=== PATIENT | female | born 1995 | race Caucasian/White ===

== ENCOUNTER 2017-10-22 13:28 | Emergency (ER) | payer SELFPAY ==
[2017-10-22] MEDS ORDERED: ACETAMINOPHEN 325 MG TABLET PO ONE (14:06)
--- NOTE | 2017-10-22 14:09 | ER Document Report ---
ED Medical Screen (RME) - General Chief Complaint: Vaginal Bleeding Stated Complaint: ABDOMINAL PAIN Time Seen by Provider: 10/22/17 14:01 Notes: 22-year-old female here with complaints of heavy vaginal bleeding and lower abdominal pain that started yesterday. She states that the bleeding started out light and has progressively worsened. She has had some blood clots that she describes as "baseball size". There was some tissue in the blood clots that concerned the patient for a possible that she did not know about. She has been lightheaded with standing and has a history of anemia. EXAM Mild to moderate suprapubic tenderness to palpation TRAVEL OUTSIDE OF THE [place] IN LAST 30 DAYS: No - Related Data Allergies/Adverse Reactions: No Known Allergies Allergy (Verified 10/22/17 13:30) Past Medical History Pulmonary Medical History: Reports: Hx Asthma - Immunizations Immunizations up to date: Yes Hx Diphtheria, Pertussis, Tetanus Vaccination: No Physical Exam - Vital signs Vitals: Temp Pulse Resp BP Pulse Ox 98.7 F 84 16 122/69 99 10/22/17 13:53 10/22/17 13:53 10/22/17 13:53 10/22/17 13:53 10/22/17 13:53 Course - Vital Signs Vital signs: Temp Pulse Resp BP Pulse Ox 98.7 F 84 16 122/69 99 10/22/17 13:53 10/22/17 13:53 10/22/17 13:53 10/22/17 13:53 10/22/17 13:53
[2017-10-22 14:49] LABS: ABSOLUTE BASOPHILS # (AUTO) 0.1 10^3/uL (0.0-0.2); ABSOLUTE EOSINOPHILS # (AUTO) 0.4 10^3/uL (0.0-0.6); ABSOLUTE LYMPHOCYTES (AUTO) 3.4 10^3/uL (0.5-4.7); ABSOLUTE MONOCYTES (AUTO) 0.5 10^3/uL (0.1-1.4); BASOPHILS % (AUTO) 0.6 % (0-2); EOSINOPHILS % (AUTO) 4.1 % (0-6); HEMOGLOBIN 11.3 g/dL (12.0-15.5); HGB HCT DIFFERENCE -1.1; LYMPHOCYTES % (AUTO) 36.4 % (13-45); MEAN CORPUSCULAR HEMOGLOBIN 24.8 pg (27.0-33.4); MEAN CORPUSCULAR HGB CONC 32.4 g/dL (32.0-36.0); MEAN CORPUSCULAR VOLUME 77 fl (80-97); MONOCYTES % (AUTO) 5.6 % (3-13); RED BLOOD COUNT 4.58 10^6/uL (3.72-5.28); RED CELL DISTRIBUTION WIDTH 17.2 % (11.5-14.0); SEGMENTED NEUTROPHILS % (AUTO) 53.3 % (42-78); WHITE BLOOD COUNT 9.4 10^3/uL (4.0-10.5)
[2017-10-22 15:01] LABS: APPEARANCE,URINE CLEAR; BILIRUBIN,URINE NEGATIVE (NEGATIVE); GLUCOSE, URINE NEGATIVE (NEGATIVE); KETONES,URINE TRACE mg/dL (NEGATIVE); LEUKOCYTE ESTERASE,URINE TRACE (NEGATIVE); NITRITE,URINE NEGATIVE (NEGATIVE); PROTEIN,URINE NEGATIVE (NEGATIVE); URINE SPECIFIC GRAVITY 1.006; UROBILINOGEN,URINE NEGATIVE mg/dL (<2.0)
[2017-10-22] MEDS ORDERED: IBUPROFEN 600 MG TABLET PO ONE (15:04)
[2017-10-22 15:12] LABS: ANION GAP 16 (5-19); BLOOD UREA NITROGEN 6 mg/dL (7-20); CALCIUM 9.8 mg/dL (8.4-10.2); CARBON DIOXIDE 22 mmol/L (22-30); CHLORIDE 103 mmol/L (98-107); CREATININE RESULT 0.52 mg/dL (0.52-1.25); GLUCOSE 83 mg/dL (75-110); POTASSIUM 3.6 mmol/L (3.6-5.0); SODIUM 140.7 mmol/L (137-145)
--- NOTE | 2017-10-22 15:30 | RADIOLOGY REPORT (SQ) ---
EXAM DESCRIPTION: U/S OB TRANSVAGINAL W/O DOP COMPLETED DATE/TIME: 10/22/2017 3:10 pm REASON FOR STUDY: blood clots and lower abd pain; eval for RPOC COMPARISON: None. TECHNIQUE: Transvaginal static and realtime grayscale images acquired of the pelvis. Additional vida cted spectral and color Doppler images recorded. All images stored on PACs. CG: Not available. LIMITATIONS: None. FINDINGS: Sonographic imaging shows a heterogeneous mass within the endometrial canal measuring 3.6 x 2.7 x 2.5 cm. No identifiable parts are seen. There is no heart motion. There is no fluid. The ovaries cannot be seen because of bowel gas. IMPRESSION: There is a heterogeneous mass within the endometrial canal that may relate to products o f conception, but no identifiable parts can be seen. The appearance is not suggestive of molar . TECHNICAL DOCUMENTATION: JOB ID: [id number] [employer]- All Rights Reserved
--- NOTE | 2017-10-22 16:44 | ER Document Report ---
ED GI/ - General Chief Complaint: Vaginal Bleeding Stated Complaint: ABDOMINAL PAIN Time Seen by Provider: 10/22/17 14:01 Notes: Patient is complaining of vaginal bleeding and passing clots and severe suprapubic abdominal pain that began yesterday afternoon around 2 PM. The bleeding and clots have worsened. Patient's last menstrual cycle was early August so she has missed 1 cycle. On no control. Denies any fevers. TRAVEL OUTSIDE OF THE [place] IN LAST 30 DAYS: No - Related Data Allergies/Adverse Reactions: No Known Allergies Allergy (Verified 10/22/17 13:30) Past Medical History - General Last Menstrual Period: 08/15/17 - Social History Smoking Status: Current Every Day Smoker Frequency of alcohol use: None Drug Abuse: None Family History: Reviewed & Not Pertinent Patient has suicidal ideation: No Patient has homicidal ideation: No Pulmonary Medical History: Reports: Hx Asthma Past Surgical History: Reports: Hx Section - Immunizations Immunizations up to date: Yes Hx Diphtheria, Pertussis, Tetanus Vaccination: No Review of Systems - Review of Systems Notes: REVIEW OF SYSTEMS: CONSTITUTIONAL : Denies fever. EENT: Denies eye, ear, nose or mouth or throat pain or other symptoms. CARDIOVASCULAR: Denies chest pain. RESPIRATORY: Denies cough, chest congestion, or shortness of breath. GASTROINTESTINAL: See HPI. GENITOURINARY: Denies difficulty or painful urinating, urinary frequency, blood in urine. See HPI. MUSCULOSKELETAL: Denies back or neck pain. Denies joint pain or swelling. SKIN: Denies rash or skin lesions. NEUROLOGICAL: Denies LOC or altered mental status. Denies headache. Denies sensory loss or motor deficits. ALL OTHER SYSTEMS REVIEWED AND NEGATIVE. Physical Exam - Vital signs Vitals: Temp Pulse Resp BP Pulse Ox 98.7 F 84 16 122/69 99 10/22/17 13:53 10/22/17 13:53 10/22/17 13:53 10/22/17 13:53 10/22/17 13:53 Interpretation: Normal - Notes Notes: PHYSICAL EXAMINATION: GENERAL: Well-appearing, in no acute distress, but does appear to be in pain. Vital signs are normal. Afebrile. HEAD: Atraumatic, normocephalic. NECK: Normal range of motion, supple. LUNGS: Breath sounds clear and equal bilaterally. HEART: Regular rate and rhythm without murmurs. ABDOMEN: Soft, tender suprapubic region but no no guarding or rebound. BACK: No tenderness throughout entire back. EXTREMITIES: Normal range of motion without pain. NEUROLOGICAL: Normal speech, normal gait. Normal sensory, motor, and reflex exams. Awake, alert, and oriented x3. Cranial nerves normal. SKIN: Warm, dry, no rashes. - Genitourinary External exam: Normal, Other - Dry blood present at the introitus Speculum exam: Cervix closed, Other - Small amount of blood in the vaginal vault.. No: Products of conception Vaginal bleeding: Mild Bimanuel exam: Uterus enlarged - Very slightly, Other - Uterus is tender to compress bimanually. Course - Re-evaluation Re-evalutation: 10/22/17 20:[address] Pham who recommended giving the patient Vasotec 800 mg PV and follow-up in the office. - Vital Signs Vital signs: Temp Pulse Resp BP Pulse Ox 98.7 F 72 16 117/72 100 10/22/17 13:53 10/22/17 16:50 10/22/17 16:50 10/22/17 16:50 10/22/17 16:50 - Laboratory Result Diagrams: 10/22/17 14:28 10/22/17 14:28 Laboratory results interpreted by me: 10/22/17 10/22/17 10/22/17 14:28 14:28 14:28 Hgb 11.3 L Hct 35.0 L MCV 77 L MCH 24.8 L RDW 17.2 H BUN 6 L Beta HCG, Quant Urine Ketones TRACE H Urine Blood LARGE H Ur Leukocyte Esterase TRACE H Urine HCG, Qual POSITIVE H 10/22/17 14:28 Hgb Hct MCV MCH RDW BUN Beta HCG, Quant 7854.20 H Urine Ketones Urine Blood Ur Leukocyte Esterase Urine HCG, Qual - Diagnostic Test Radiology reviewed: Image reviewed, Reports reviewed - Ultrasound shows a mass in the endometrial canal which is likely products of conception and miscarriage. On the patient's pelvic exam, there was no tissue that I could remove with the ring forceps. The cervix was closed. Discharge - Discharge Clinical Impression: Incomplete miscarriage Condition: Stable Disposition: HOME, SELF-CARE Additional Instructions: Miscarriage Impending You have been evaluated for a possible miscarriage. At this time, it appears that the fetus has stopped growing. A miscarriage occurs when the fetus is abnormal. There is no medicine or treatment to prevent it. If bleeding is not severe, and if your pain can be controlled with medicine, you could complete the miscarriage at home. If that's not practical, or if the miscarriage doesn't progress spontaneously, we will arrange for a D&C procedure. You should rest in bed. Do not douche or have sex for at least a week, or until OK'd by the doctor. If you believe you've passed the fetus, collect it in a zip-lock plastic bag. Be sure to follow up with your doctor. Call the doctor or return for re- examination if there is an increase in bleeding or cramping, extreme weakness, fainting, fever, or passage of tissue. Ibuprofen Ibuprofen is an excellent, safe drug for pain control. In addition, it has potent antiinflammatory effects which are beneficial, especially in the treatment of injuries, arthritis, or tendonitis. It's best to take ibuprofen with food. Persons with ulcer disease or allergy to aspirin should notify their physician of this before taking ibuprofen. Take the medication exactly as prescribed. Don't take additional doses unless instructed to do so by your doctor. If you develop wheezing, shortness of breath, hives, faintness, stomach pain, vomiting, or dark black stools, return for re-evaluation at once. Oral Narcotic Medication You have been given a prescription for pain control. This medication is a narcotic. It's best taken with food, as nausea can result if taken on an empty stomach. Don't operate machinery or drive within six hours of taking this medication. Do not combine this medicine with alcohol, or with any medication which can cause sedation (such as cold tablets or sleeping pills) unless you get permission from the physician. Narcotics tend to cause constipation. If possible, drink plenty of fluids and eat a diet high in fiber and fruits. You have been given a prescription for Cytotec which is prescribed to help the contractions and expelling the miscarriage tissue and blood. The four tablets should be inserted in the vagina all at one time. They may cause uterine cramping. FOLLOW-UP CARE: If you have been referred to a physician for follow-up care, call the physician s office for an appointment as you were instructed or within the next two days. If you experience worsening or a significant change in your symptoms (very heavy bleeding with large clots of blood, passage of tissue, more severe abdominal / pelvic pain or cramping, feeling faint or severe weakness, fever, etc.), notify the physician immediately or return to the Emergency Department at any time for re-evaluation. OBSTETRIC-GYNECOLOGIC ([facility]) [facility] IN [place]: [facility] [address] [place] [address] [phone] We recommend you follow-up with the local [facility] in a week to have repeat lab work done. Prescriptions: Misoprostol [Cytotec 0.2 mg Tablet] 0.8 mg PV ONCE PRN #4 tablet PRN Reason: Oxycodone HCl/Acetaminophen [Percocet 5-325 mg Tablet] 1 - 2 tab PO Q4H PRN #10 tablet PRN Reason: Forms: Return to Work
[2017-10-22 17:05] VITALS: BP 117/72
== END 2017-10-22 16:50 | disposition home or self-care (01) ==
LOC: ER 13:28
DX: O03.4 Incomplete spontaneous abortion without complication (principal); J45.909 Unspecified asthma, uncomplicated; R10.30 Lower abdominal pain, unspecified; F17.200 Nicotine dependence, unspecified, uncomplicated
CPT/HCPCS: 36415; 76817; 80048; 81001; 81025; 84702; 85025; 86900; 86901; 99284

== ENCOUNTER 2019-11-23 19:30 | Observation (INO) | payer SELFPAY ==
[2019-11-23] MEDS ORDERED: KETOROLAC TROMETHAMINE INJ/PF 30 MG/1 ML SDV IV ONE ×2 (20:39→23:30)
[2019-11-23] MEDS ORDERED: NORMAL SALINE 1000 ML 1,000 ML IV ONE (20:39)
[2019-11-23] MEDS ORDERED: ONDANSETRON HCL INJ/PF 4 MG/2 ML SDV IV ONE ×2 (20:39→23:30)
--- NOTE | 2019-11-23 20:41 | ER Document Report ---
ED Medical Screen (RME) - General Chief Complaint: Abdominal Pain Stated Complaint: ABDOMINAL PAIN Time Seen by Provider: 11/23/19 20:33 TRAVEL OUTSIDE OF THE [place] IN LAST 30 DAYS: No - HPI Notes: 11/23/19 20:39 24-year-old female presents emergency room with sudden onset right upper quadrant abdominal pain that started this morning, worse after eating a fatty meal. Denies any fevers or chills. Denies any nausea vomiting or diarrhea. Patient suspects this is her gallbladder. Pain is 7 out of 10, constant after she ate pizza at 5 PM. Denies any prior history of abdominal surgeries. I have greeted and performed a rapid initial assessment of this patient. A comprehensive ED assessment and evaluation of the patient, analysis of test results and completion of the medical decision making process will be conducted by additional ED providers. PHYSICAL EXAMINATION: GENERAL: Well-appearing, well-nourished and in no acute distress. HEAD: Atraumatic, normocephalic. CV: s1, s2 regular LUNGS: No respiratory distress abd: RUQ abd pain Musculoskeletal: Normal range of motion NEUROLOGICAL: Normal speech, normal gait. SKIN: Warm, Dry, normal turgor, no rashes or lesions noted. - Related Data Allergies/Adverse Reactions: No Known Allergies Allergy (Verified 10/22/17 13:30) Past Medical History - Social History Frequency of alcohol use: None Drug Abuse: None Pulmonary Medical History: Reports: Hx Asthma Renal/ Medical History: Reports: Hx Peritoneal Dialysis Past Surgical History: Reports: Hx Section - Immunizations Immunizations up to date: Yes Hx Diphtheria, Pertussis, Tetanus Vaccination: No Physical Exam - Vital signs Vitals: Temp Pulse Resp BP Pulse Ox 98.4 F 80 18 117/70 100 11/23/19 19:44 11/23/19 19:44 11/23/19 19:44 11/23/19 19:44 11/23/19 19:44 Course - Vital Signs Vital signs: Temp Pulse Resp BP Pulse Ox 98.4 F 80 18 117/70 100 11/23/19 19:44 11/23/19 19:44 11/23/19 19:44 11/23/19 19:44 11/23/19 19:44
[2019-11-23 21:56] LABS: ABSOLUTE BASOPHILS # (AUTO) 0.1 10^3/uL (0.0-0.2); ABSOLUTE EOSINOPHILS # (AUTO) 0.4 10^3/uL (0.0-0.6); ABSOLUTE LYMPHOCYTES (AUTO) 4.1 10^3/uL (0.5-4.7); ABSOLUTE MONOCYTES (AUTO) 0.7 10^3/uL (0.1-1.4); ABSOLUTE NEUT (AUTO) 3.8 10^3/uL (1.7-8.2); EOSINOPHILS % (AUTO) 4.1 % (0-6); HEMATOCRIT 36.9 % (36.0-47.0); HEMOGLOBIN 11.5 g/dL (12.0-15.5); LYMPHOCYTES % (AUTO) 45.4 % (13-45); MEAN CORPUSCULAR HEMOGLOBIN 22.3 pg (27.0-33.4); MEAN CORPUSCULAR HGB CONC 31.2 g/dL (32.0-36.0); MEAN CORPUSCULAR VOLUME 71 fl (80-97); MONOCYTES % (AUTO) 7.6 % (3-13); PLATELET COUNT 282 10^3/uL (150-450); RED BLOOD COUNT 5.17 10^6/uL (3.72-5.28); RED CELL DISTRIBUTION WIDTH 17.3 % (11.5-14.0); SEGMENTED NEUTROPHILS % (AUTO) 41.9 % (42-78); TOTAL CELLS COUNTED % (AUTO) 100 %; WHITE BLOOD COUNT 9.1 10^3/uL (4.0-10.5)
[2019-11-23 21:57] LABS: APPEARANCE,URINE SLIGHTLY-CLOUDY; BILIRUBIN,URINE NEGATIVE (NEGATIVE); COLOR,URINE YELLOW; GLUCOSE, URINE NEGATIVE (NEGATIVE); KETONES,URINE TRACE mg/dL (NEGATIVE); LEUKOCYTE ESTERASE,URINE MODERATE (NEGATIVE); NITRITE,URINE POSITIVE (NEGATIVE); PROTEIN,URINE 30 mg/dL (NEGATIVE); URINE SPECIFIC GRAVITY 1.027
[2019-11-23 22:09] LABS: ALBUMIN 5.2 g/dL (3.5-5.0); ALKALINE PHOSPHATASE 64 U/L (38-126); ANION GAP 14 (5-19); ASPARTATE AMINO TRANSFERASE 24 U/L (14-36); BILIRUBIN,DIRECT 0.1 mg/dL (0.0-0.4); BILIRUBIN,TOTAL 1.2 mg/dL (0.2-1.3); BLOOD UREA NITROGEN 19 mg/dL (7-20); CALCIUM 10.4 mg/dL (8.4-10.2); CARBON DIOXIDE 26 mmol/L (22-30); CHLORIDE 101 mmol/L (98-107); GLUCOSE 91 mg/dL (75-110); POTASSIUM 4.7 mmol/L (3.6-5.0); TOTAL PROTEIN 8.8 g/dL (6.3-8.2)
--- NOTE | 2019-11-23 22:17 | RADIOLOGY REPORT (SQ) ---
US ABDOMEN LIMITED HISTORY: RUQ abdominal pain COMPARISON: none TECHNIQUE: Real-time sonographic images of the right upper quadrant of the abdomen were obtained including color flow analysis. FINDINGS: The liver is normal in appearance and measures 14.3 cm in length. Imaged hepatic and portal veins are patent with normal directional flow. No intrahepatic or extrahepatic biliary ductal dilatation. 2.0-mm common hepatic duct. The gallbladder is contracted but noted to contain sludge and multiple echogenic foci that produce acoustic shadowing with the largest measuring 1.4 cm in size. The gallbladder wall is thickened up to 4 mm. No pericholecystic fluid. Positive sonographic Jama's sign. Visualized portions of the pancreas are unremarkable. The right kidney is unremarkable measuring 10.6 cm in length. No shadowing calculi or right-sided hydronephrosis. No free fluid in Morison's pouch. IMPRESSION: Cholelithiasis and probable cholecystitis. No biliary obstruction.
[2019-11-24] MEDS ORDERED: AMPICILLIN SOD/SULBACTAM 3 GM VIAL IV ONE (01:03)
[2019-11-24] MEDS ORDERED: MORPHINE SULFATE 10 MG/ML INJ IV ONE (01:04)
--- NOTE | 2019-11-24 01:05 | ER Document Report ---
ED GI/ - General Chief Complaint: Abdominal Pain Stated Complaint: ABDOMINAL PAIN Time Seen by Provider: 11/23/19 20:33 Notes: Patient is a 24-year-old female that comes to the emergency department for chief complaint of right upper quadrant pain. She states that she started hurting last night, pain continued today with nausea, she did not eat anything all day, she states she tried to eat a slice of pizza tonight and had severe pain causing her to come to the emergency department. She was treated with Toradol and does feel improved but the pain has not resolved. She denies vomiting, fever, lower abdominal pain, dysuria. She has had a but no other surgeries, she denies smoking, drinks occasional alcohol, denies any recreational drugs. She denies any daily medications. TRAVEL OUTSIDE OF THE [place] IN LAST 30 DAYS: No - Related Data Allergies/Adverse Reactions: No Known Allergies Allergy (Verified 10/22/17 13:30) Past Medical History - General Information source: Patient - Social History Smoking Status: Current Every Day Smoker Frequency of alcohol use: None Drug Abuse: None Lives with: Family Family History: Reviewed & Not Pertinent Patient has suicidal ideation: No Patient has homicidal ideation: No Pulmonary Medical History: Reports: Hx Asthma Renal/ Medical History: Reports: Hx Peritoneal Dialysis Past Surgical History: Reports: Hx Section - Immunizations Immunizations up to date: Yes Hx Diphtheria, Pertussis, Tetanus Vaccination: No Review of Systems - Review of Systems Constitutional: No symptoms reported EENT: No symptoms reported Cardiovascular: No symptoms reported Respiratory: No symptoms reported Gastrointestinal: See HPI Genitourinary: No symptoms reported Female Genitourinary: No symptoms reported Musculoskeletal: No symptoms reported Skin: No symptoms reported Hematologic/Lymphatic: No symptoms reported Neurological/Psychological: No symptoms reported Physical Exam - Vital signs Vitals: Temp Pulse Resp BP Pulse Ox 98.4 F 80 18 117/70 100 11/23/19 19:44 11/23/19 19:44 11/23/19 19:44 11/23/19 19:44 11/23/19 19:44 - Notes Notes: GENERAL: Alert, interacts well. HEAD: Normocephalic, atraumatic. EYES: Pupils equal, round, and reactive to light. Extraocular movements intact. ENT: Oral mucosa moist, tongue midline. Oropharynx unremarkable. Airway patent. LUNGS: Clear to auscultation bilaterally, no wheezes, rales, or rhonchi. No respiratory distress. HEART: Regular rate and rhythm. No murmur ABDOMEN: Epigastric and right upper quadrant tenderness on exam, mid to lower abdomen is complete benign. No rigidity or guarding. Bowel sounds present. GENITOURINARY: Deferred EXTREMITIES: Moves all 4 extremities spontaneously. No edema, normal radial and dorsalis pedis pulses bilaterally. No cyanosis. BACK: no cervical, thoracic, lumbar midline tenderness. No saddle anesthesia, normal distal neurovascular exam. Moves all extremities in full range of motion. NEUROLOGICAL: Alert and oriented x3. Normal speech. Cranial nerves II through XII grossly intact. PSYCH: Normal affect, normal mood. SKIN: Warm, dry, normal turgor. No rashes or lesions noted. Course - Re-evaluation Re-evalutation: Patient still has right upper quadrant tenderness despite medications, her symptoms are very consistent with gallbladder pathology, CBC, chemistry, lipase reassuring, however right upper quadrant ultrasound is showing cholelithiasis and possible cholecystitis. There is gallbladder wall thickening and positive Jama sign. Because of the concern for cholecystitis patient will be kept n.p.o. and I will discuss with the surgeon. I discussed this with patient at length and she states full agreement with this plan. Discussed with Dr. Apodaca, he evaluated the patient at bedside, he is admitting the patient for surgery in the morning, patient admitted to the surgical service. - Vital Signs Vital signs: Temp Pulse Resp BP Pulse Ox 97.6 F 63 18 107/70 99 11/24/19 04:00 11/24/19 04:00 11/24/19 04:00 11/24/19 04:00 11/24/19 04:00 - Laboratory Result Diagrams: 11/23/19 21:19 11/23/19 21:19 Laboratory results interpreted by me: 11/23/19 11/23/19 11/23/19 21:19 21:19 21:19 Hgb 11.5 L MCV 71 L MCH 22.3 L MCHC 31.2 L RDW 17.3 H Lymph % (Auto) 45.4 H Seg Neutrophils % 41.9 L Calcium 10.4 H Total Protein 8.8 H Albumin 5.2 H Urine Protein 30 H Urine Ketones TRACE H Urine Nitrite POSITIVE H Urine Urobilinogen 2.0 H Ur Leukocyte Esterase MODERATE H Discharge - Discharge Clinical Impression: Right upper quadrant pain Cholelithiasis Qualifiers: Cholelithiasis location: gallbladder Cholecystitis presence: with cholecystitis Cholecystitis acuity: acute Biliary obstruction: without biliary obstruction Qualified Code(s): K80.00 - Calculus of gallbladder with acute cholecystitis without obstruction Condition: Stable Disposition: ADMITTED OBSERVATION Admitting Provider: Surgicalist Unit Admitted: Surgical Floor
[2019-11-24] MEDS ORDERED: NICOTINE 7 MG/24 HR PATCH.TD24 TD ONE (01:34)
--- NOTE | 2019-11-24 01:49 | PDOC H&P ---
History of Present Illness Admission Date/PCP: 11/24/2019 Patient complains of: Right upper quadrant pains History of Present Illness: RASHEED DELGADO is a 24 year old female who ate pizza yesterday at 5 PM followed 20 minutes later by severe right upper quadrant pains with nausea. She went to ED last night and ultrasound showed gallstones with thickened gallbladder wall of about 4mm. Denies any fever no chills diarrhea nor constipation. She claims she may have the symptoms in the past pains were very transient. Past Medical History Pulmonary Medical History: Reports: Asthma Past Surgical History Past Surgical History: Reports: Section Social History Smoking Status: Current Every Day Smoker Family History Family History: Reviewed & Not Pertinent Parental Family History Reviewed: Yes Children Family History Reviewed: No Sibling(s) Family History Reviewed.: No Medication/Allergy Home Medications: Dicyclomine HCl [Bentyl 20 mg Tablet] 40 mg PO QIDP PRN #40 tablet 12/30/15 Nitrofurantoin/Nitrofuran Mac [Macrobid 100 mg Capsule] 1 tab PO BID #6 capsule 12/30/15 Hydrocodone/Acetaminophen [[place] 5-325 mg Tablet] 1 tab PO PRN PRN #15 tablet 07/11/16 Penicillin V Potassium [Penicillin Vk 250 mg Tablet] 250 mg PO Q6 #28 tablet 07/11/16 Penicillin V Potassium [Penicillin Vk 500 mg Tablet] 500 mg PO QID #28 tablet 07/18/16 Tramadol HCl 50 mg PO ASDIR PRN #20 tablet 07/18/16 Cephalexin Monohydrate [Keflex 500 mg Capsule] 500 mg PO QID 10 Days capsule 11/03/16 Misoprostol [Cytotec 0.2 mg Tablet] 0.8 mg PV ONCE PRN #4 tablet 10/22/17 Oxycodone HCl/Acetaminophen [Percocet 5-325 mg Tablet] 1 - 2 tab PO Q4H PRN #10 tablet 10/22/17 Allergies/Adverse Reactions: No Known Allergies Allergy (Verified 10/22/17 13:30) Review of Systems Constitutional: PRESENT: as per HPI Gastrointestinal: PRESENT: abdominal pain, nausea Physical Exam Vital Signs: Temp Pulse Resp BP Pulse Ox 98.4 F 80 18 117/70 100 11/23/19 19:44 11/23/19 19:44 11/23/19 19:44 11/23/19 19:44 11/23/19 19:44 Intake & Output 11/22/19 11/23/19 11/24/19 06:59 06:59 06:59 Intake Total 1000 Balance 1000 Weight 48 kg General appearance: PRESENT: mild distress Head exam: PRESENT: atraumatic Eye exam: PRESENT: conjunctiva pink Mouth exam: PRESENT: moist Neck exam: PRESENT: full ROM Respiratory exam: PRESENT: clear to auscultation drea Cardiovascular exam: PRESENT: RRR Pulses: PRESENT: normal radial pulses Vascular exam: PRESENT: normal capillary refill GI/Abdominal exam: PRESENT: soft, tenderness - Right upper quadrant Rectal exam: PRESENT: deferred Neurological exam: PRESENT: alert, oriented to person, oriented to place, oriented to time, oriented to situation Psychiatric exam: PRESENT: appropriate affect Skin exam: PRESENT: normal color, warm Results Laboratory Results: 11/23/19 21:19 11/23/19 21:19 11/23/19 11/23/19 11/23/19 21:19 21:19 21:19 WBC 9.1 RBC 5.17 Hgb 11.5 L Hct 36.9 MCV 71 L MCH 22.3 L MCHC 31.2 L RDW 17.3 H Plt Count 282 Seg Neutrophils % 41.9 L Sodium 141.2 Potassium 4.7 Chloride 101 Carbon Dioxide 26 Anion Gap 14 BUN 19 Creatinine 0.73 Est GFR ( Amer) > 60 Glucose 91 Calcium 10.4 H Total Bilirubin 1.2 AST 24 Alkaline Phosphatase 64 Total Protein 8.8 H Albumin 5.2 H Lipase 134.6 Urine Color YELLOW Urine Appearance SLIGHTLY-CLOUDY Urine pH 6.0 Ur Specific [place] 1.027 Urine Protein 30 H Urine Glucose (UA) NEGATIVE Urine Ketones TRACE H Urine Blood NEGATIVE Urine Nitrite POSITIVE H Ur Leukocyte Esterase MODERATE H Urine WBC (Auto) 66 Urine RBC (Auto) 2 Impressions: Abdomen Ultrasound 11/23/19 20:37 IMPRESSION: Cholelithiasis and probable cholecystitis. No biliary obstruction. Assessment & Plan - Diagnosis (1) Acute cholecystitis Is this a current diagnosis for this admission?: Yes (2) Cholelithiasis Qualifiers: Cholelithiasis location: gallbladder Cholecystitis presence: with cholecystitis Cholecystitis acuity: acute Biliary obstruction: without biliary obstruction Qualified Code(s): K80.00 - Calculus of gallbladder with acute cholecystitis without obstruction Is this a current diagnosis for this admission?: Yes - Time Time Spent: 30 to 50 Minutes - Inpatient Certification Medical Necessity: Need for Pain Control, Need for IV Antibiotics, Need for Surgery - Plan Summary Plan Summary: 24-year-old female who complained of right upper quadrant pains after a fatty meal last night. This was associated with nausea but no fever no chills. She had an ultrasound of the gallbladder in the ED which showed gallstones with thickened gallbladder wall suspicious for acute cholecystitis. Plans: Start IV antibiotics For laparoscopic cholecystectomy later today
[2019-11-24] MEDS ORDERED: HYDROMORPHONE HCL INJ/PF 2 MG/ML AMPULE IV PRN (01:55)
[2019-11-24] MEDS ORDERED: NICOTINE 7 MG/24 HR PATCH.TD24 ONE (01:59)
[2019-11-24] MEDS: NORMAL SALINE 1000 ML 1,000 ML IV PRN ×2 (02:02→09:38)
[2019-11-24] MEDS ORDERED: KETOROLAC TROMETHAMINE INJ/PF 30 MG/1 ML SDV IV ONE (02:30)
[2019-11-24] MEDS ORDERED: KETOROLAC TROMETHAMINE INJ/PF 30 MG/1 ML SDV IV SCH ×2 (02:30→18:00)
[2019-11-24] MEDS: PIPERACILLIN/TAZOBACTAM 3.375 GM VIAL IV SCH ×2 (03:11→09:30)
[2019-11-24] MEDS: ONDANSETRON HCL INJ/PF 4 MG/2 ML SDV IV PRN ×2 (04:06→19:51)
[2019-11-24] MEDS: HYDROMORPHONE HCL INJ/PF 2 MG/ML AMPULE IV PRN ×4 (04:11→23:10)
[2019-11-24] MEDS ORDERED: INFLUENZA QUAD (6MOS+) 2019-20 VAC 0.5 ML SYR IM ONE (04:25)
[2019-11-24] MEDS ORDERED: LIDOCAINE 2% INJ (20 MG/ML) 20 ML MDV ONE (06:58)
[2019-11-24] MEDS: KETOROLAC TROMETHAMINE INJ/PF 30 MG/1 ML SDV IV SCH ×3 (08:10→21:28)
[2019-11-24] MEDS: PIPERACILLIN SODIUM/TAZOBACTAM 3.375 GM in NORMAL SALINE 100 ML IV SCH ×3 (09:35→21:27)
[2019-11-24] MEDS ORDERED: FENTANYL CITRATE INJ/PF 100 MCG/2 ML AMPUL ONE ×2 (11:41→13:49)
[2019-11-24] MEDS ORDERED: PROMETHAZINE HCL INJ 25 MG/1 ML VIAL ONE (11:41)
[2019-11-24] MEDS ORDERED: DEXMEDETOMIDINE INJ 80 MCG/20 ML VIAL IV ONE (11:41)
[2019-11-24] MEDS ORDERED: MIDAZOLAM 2 MG/2 ML INJ ONE (11:41)
[2019-11-24] MEDS ORDERED: PROPOFOL INJ 200 MG/20 ML VIAL IV ONE (11:42)
[2019-11-24] MEDS ORDERED: EPINEPHRINE INJ/PF 1 MG/1 ML AMPULE ONE (11:53)
[2019-11-24] MEDS ORDERED: ONDANSETRON HCL INJ/PF 4 MG/2 ML SDV IV PRN (12:34)
[2019-11-24] MEDS ORDERED: FENTANYL CITRATE INJ/PF 100 MCG/2 ML AMPUL IV PRN ×3 (12:34)
[2019-11-24] MEDS ORDERED: MEPERIDINE HCL/PF INJ 25 MG/1 ML DISP.SYRIN IV PRN (12:34)
[2019-11-24] MEDS ORDERED: MORPHINE SULFATE 10 MG/ML INJ IV PRN (12:34)
[2019-11-24] MEDS ORDERED: DIPHENHYDRAMINE HCL 50 MG/ML VIAL IV PRN (12:34)
[2019-11-24] MEDS ORDERED: OXYCODONE-ACETAMINOPHEN 5-325 MG TABLET PO PRN ×2 (12:34)
[2019-11-24] MEDS: BUPIVACAINE HCL 0.25 % INJ/PF (2.5 MG/1 ML) 30 ML VIAL ONE ×2 (12:37→13:16)
[2019-11-24] MEDS ORDERED: ACETAMINOPHEN 1,000 MG/100 ML RTUPB IV ONE ×2 (14:13→14:30)
[2019-11-24] MEDS ORDERED: NORMAL SALINE 1000 ML 1,000 ML IV PRN (14:16)
[2019-11-24] MEDS ORDERED: DEXAMETHASONE SOD PHOSPHATE INJ 4 MG/1 ML VIAL ONE (14:31)
[2019-11-24] MEDS ORDERED: ONDANSETRON HCL INJ/PF 4 MG/2 ML SDV ONE (14:31)
[2019-11-24] MEDS ORDERED: GLYCOPYRROLATE 1 MG/5 ML VIAL ONE (14:31)
[2019-11-24] MEDS ORDERED: KETOROLAC TROMETHAMINE 60 MG/2 ML SDV ONE (14:31)
[2019-11-24] MEDS ORDERED: NEOSTIGMINE METHYLSULFATE 10 MG/10 ML VIAL ONE (14:31)
[2019-11-24] MEDS ORDERED: ROCURONIUM BROMIDE INJ 50 MG/5 ML VIAL IV ONE (14:38)
[2019-11-24] MEDS ORDERED: SUCCINYLCHOLINE CHLORIDE INJ 200 MG/10 ML VIAL ONE (14:38)
[2019-11-24] MEDS: OXYCODONE-ACETAMINOPHEN 5-325 MG TABLET PO PRN ×2 (16:08→20:10)
--- NOTE | 2019-11-24 16:19 | Operative Report ---
Operative Report DATE OF SURGERY: 11/24/19 PREOPERATIVE DIAGNOSIS: Acute calculus cholecystitis POSTOPERATIVE DIAGNOSIS: Same OPERATION: Laparoscopic cholecystectomy SURGEON: WHIT WALTON ANESTHESIA: GA TISSUE REMOVED OR ALTERED: Gallbladder COMPLICATIONS: None ESTIMATED BLOOD LOSS: 15 cc QUANTITATIVE BLOOD LOSS: 15 INTRAOPERATIVE FINDINGS: Acute calculus cholecystitis with distended gallbladder. PROCEDURE: After adequate general anesthesia patient was placed in supine position and the abdomen prepped and draped in the usual sterile fashion. Appropriate timeout was then called. Next an infraumbilical incision was made and the fascia identified divided between Gosia clamps and peritoneal cavity punctured with a hemostat and dilated. Suture of 0 Vicryl placed on each side of the Gosia clamps and the clamps released. The fascial defect was digitally examined and down to the peritoneal cavity. No adhesions in the peritoneum noted. Next a Madsen trocar was then inserted through the abdominal cavity and CO2 insufflated to a pressure of 15 mmHg. 3 other trochars were placed at 12 mm in the subxiphoid and 2 5 mg the right upper quadrant. Visualization of the gallbladder was noted to be thick-walled and markedly distended. With the use of a long needle it was then punctured at the tip and bile suctioned out. It was subsequently grasped with a grasper where the puncture was of the gallbladder and the gallbladder pulled over the liver. There are adhesions towards the area of the cystic duct was then dissected bluntly and with the use of harmonic yahir. The infundibulum was then identified and grasped and dissection of the cystic duct area was done. After identifying the cystic duct and cystic artery establishing angle of safety the cystic duct was then clipped clipped 3 times proximally and single clipped towards gallbladder and divided between the distal clips. Cystic artery was then clipped with hemoclips and divided between the clips with the use of harmonic yahir. The gallbladder was then dissected off the liver bed with the use of harmonic yahir. Gallbladder was then completely removed from the liver bed and placed in an Endobag and pulled out through the umbilical port. Madsen trocar was then reinserted thro ugh the umbilicus and coronary also reinserted the. Liver bed was inspected and irrigated no evidence of active bleeding noted. Piece of Surgicel was then placed over the liver bed. Some of the irrigation was then suctioned out. All the trochars were then removed and CO2 allowed to come out of the trocar sites. The fascial defect closed with [id number] suture using 0 Vicryl. Local anesthesia infiltrated over the fascia and over the skin incision sites. Skin incisions were then closed with running subcuticular 4-0 Vicryl undyed. Steri- Strips placed over the incision sites. Patient tolerated procedure well needle instrument sponge count were all correct and estimated blood loss about 15 cc. Patient then brought to the PACU in satisfactory condition extubated
[2019-11-25] MEDS: PIPERACILLIN SODIUM/TAZOBACTAM 3.375 GM in NORMAL SALINE 100 ML IV SCH ×2 (02:21→08:12)
[2019-11-25] MEDS: KETOROLAC TROMETHAMINE INJ/PF 30 MG/1 ML SDV IV SCH ×2 (02:23→08:13)
[2019-11-25] MEDS ORDERED: NICOTINE 7 MG/24 HR PATCH.TD24 TD SCH (08:00)
--- NOTE | 2019-11-25 08:42 | PDOC DISCHARGE SUMMARY ---
General - Admit/Disc Date/PCP Admission Date/Primary Care Provider: 11/24/19 02:34 Discharge Date: 11/25/19 - Discharge Diagnosis Final Diagnosis: acute cholecystitis Cholelithiasis - Assessment Summary: Lap Cholecystectomy for acute cholecystitis 11/24/19. Tolerating diet today. Discharge on Percocst q 6 hrs x 12 pills. - Additional Information Resuscitation Status: Full Code Referrals: [facility] [Provider Group] - 12/06/19 9:45 am Home Medications: No Home Medications 11/24/19 History of Present Illiness History of Present Illness: RASHEED DELGADO is a 24 year old female who ate pizza yesterday at 5 PM followed 20 minutes later by severe right upper quadrant pains with nausea. She went to ED last night and ultrasound showed gallstones with thickened gallbladder wall of about 4mm. Denies any fever no chills diarrhea nor constipation. She claims she may have the symptoms in the past pains were very transient. Hospital Course Hospital Course: Lap Brie 11/24/19. Tolerated diet 11/25/19. Physical Exam Vital Signs: Temp Pulse Resp BP Pulse Ox 98.0 F 71 18 108/65 100 11/25/19 00:01 11/25/19 00:01 11/25/19 00:01 11/25/19 00:01 11/25/19 00:01 Intake & Output 11/24/19 11/25/19 11/26/19 06:59 06:59 06:59 Intake Total 1000 4428 Output Total 10 Balance 1000 4418 Weight 49.3 kg 51.4 kg Results Laboratory Results: WBC 9.1 10^3/uL (4.0-10.5) 11/23/19: RBC 5.17 10^6/uL (3.72-5.28) 11/23/19: Hgb 11.5 g/dL (12.0-15.5) L 11/23/19: Hct 36.9 % (36.0-47.0) 11/23/19 21: MCV 71 fl (80-97) L 11/23/19 21: MCH 22.3 pg (27.0-33.4) L 11/23/19 21: MCHC 31.2 g/dL (32.0-36.0) L 11/23/19 21:19 RDW 17.3 % (11.5-14.0) H 11/23/19 21:19 Plt Count 282 10^3/uL (150-450) 11/23/19 21:19 Lymph % (Auto) 45.4 % (13-45) H 11/23/19 21:19 [place] % (Auto) 7.6 % (3-13) 11/23/19 21:19 Eos % (Auto) 4.1 % (0-6) 11/23/19 21:19 Baso % (Auto) 1.0 % (0-2) 11/23/19 21:19 Absolute Neuts (auto) 3.8 10^3/uL (1.7-8.2) 11/23/19 21:19 Absolute Lymphs (auto) 4.1 10^3/uL (0.5-4.7) 11/23/19 21:19 Absolute Monos (auto) 0.7 10^3/uL (0.1-1.4) 11/23/19 21:19 Absolute Eos (auto) 0.4 10^3/uL (0.0-0.6) 11/23/19 21:19 Absolute Basos (auto) 0.1 10^3/uL (0.0-0.2) 11/23/19 21:19 Seg Neutrophils % 41.9 % (42-78) L 11/23/19 21:19 Sodium 141.2 mmol/L (137-145) 11/23/19 21:19 Potassium 4.7 mmol/L (3.6-5.0) 11/23/19 21:19 Chloride 101 mmol/L (98-107) 11/23/19 21:19 Carbon Dioxide 26 mmol/L (22-30) 11/23/19 21:19 Anion Gap 14 (5-19) 11/23/19 21:19 BUN 19 mg/dL (7-20) 11/23/19 21:19 Creatinine 0.73 mg/dL (0.52-1.25) 11/23/19 21:19 Est GFR ( Amer) > 60 (>60) 11/23/19 21:19 Est GFR (MDRD) Non-Af > 60 (>60) 11/23/19 21:19 Glucose 91 mg/dL (75-110) 11/23/19 21:19 Calcium 10.4 mg/dL (8.4-10.2) H 11/23/19 21:19 Total Bilirubin 1.2 mg/dL (0.2-1.3) 11/23/19 21:19 Direct Bilirubin 0.1 mg/dL (0.0-0.4) 11/23/19 21:19 Neonat Total Bilirubin Not Reportable 11/23/19 21:19 Neonat Direct Bilirubin Not Reportable 11/23/19 21:19 Neonat Indirect Bili Not Reportable 11/23/19 21:19 AST 24 U/L (14-36) 11/23/19 21:19 ALT 16 U/L (<35) 11/23/19 21:19 Alkaline Phosphatase 64 U/L (38-126) 11/23/19 21:19 Total Protein 8.8 g/dL (6.3-8.2) H 11/23/19 21:19 Albumin 5.2 g/dL (3.5-5.0) H 11/23/19 21:19 Lipase 134.6 U/L (23-300) 11/23/19 21:19 Urine Color YELLOW 11/23/19 21:19 Urine Appearance SLIGHTLY-CLOUDY 11/23/19 21:19 Urine pH 6.0 (5.0-9.0) 11/23/19 21:19 Ur Specific [place] 1.027 11/23/19 21:19 Urine Protein 30 mg/dL (NEGATIVE) H 11/23/19 21:19 Urine Glucose (UA) NEGATIVE mg/dL (NEGATIVE) 11/23/19 21:19 Urine Ketones TRACE mg/dL (NEGATIVE) H 11/23/19 21:19 Urine Blood NEGATIVE (NEGATIVE) 11/23/19 21:19 Urine Nitrite POSITIVE (NEGATIVE) H 11/23/19 21:19 Urine Bilirubin NEGATIVE (NEGATIVE) 11/23/19 21:19 Urine Urobilinogen 2.0 mg/dL (<2.0) H 11/23/19 21:19 Ur Leukocyte Esterase MODERATE (NEGATIVE) H 11/23/19 21:19 Urine WBC (Auto) 66 /HPF 11/23/19 21:19 Urine RBC (Auto) 2 /HPF 11/23/19 21:19 Urine Bacteria (Auto) 3+ /HPF 11/23/19 21:19 Squamous Epi Cells Auto 2 /HPF 11/23/19 21:19 Urine Mucus (Auto) MANY /LPF 11/23/19 21:19 Urine Ascorbic Acid NEGATIVE (NEGATIVE) 11/23/19 21:19 Urine HCG, Qual NEGATIVE (NEGATIVE) 11/23/19 21:19 Impressions: Abdomen Ultrasound 11/23/19 20:37 IMPRESSION: Cholelithiasis and probable cholecystitis. No biliary obstruction.
[2019-11-25] MEDS: OXYCODONE-ACETAMINOPHEN 5-325 MG TABLET PO PRN (09:57)
[2019-11-25 10:21] VITALS: BP 117/70
== END 2019-11-25 10:40 | disposition home or self-care (01) ==
LOC: ER 19:30 → EH 11-24 02:34 → 4W 11-24 03:50
PROVIDERS: ADMIT Surgery; ATTEND Surgery
DX: K80.10 Calculus of gallbladder with chronic cholecystitis without obstruction (principal); F17.200 Nicotine dependence, unspecified, uncomplicated
CPT/HCPCS: 99285; 96361; 96374; 96375; 36415; 83690; 85025; 81025; 80053; 81001; 88304 ×2; 76705; 93976; 00790; 47562; G0378 ×3; J2250; J3490 ×6; J1100; J1885 ×4; J3010; J0295; J2270; J2710; J1170; J0330; J2405 ×2; J7050 ×2; J7030 ×2; J2704; J2543 ×2; J0131; 790; J0171; J2550